=== PATIENT | female | born 1975 | race Caucasian/White ===

== ENCOUNTER 2016-10-17 21:33 | Emergency (ER) | payer BC ==
[~2016-10-17] VITALS: Ht 157.5 cm; Wt 89.1 kg
[2016-10-17 22:33] LABS: BASOPHIL COUNT 0.1 K/uL (0-0.1); EOSINOPHIL (%) 0.7 % (0-5); EOSINOPHIL COUNT 0.1 K/uL (0-0.3); HEMATOCRIT 40.4 % (36.0-46.0); IMMATURE GRANULOCYTE (%) 0.7 % (0.0-0.7); IMMATURE GRANULOCYTE COUNT 0.1 K/uL; LYMPHOCYTE COUNT 2.2 K/uL (1.0-2.8); MCH 30.3 PG (29.0-34.0); MCHC 33.9 G/DL (30.0-36.0); MCV 89.4 FL (83-99); MONOCYTE (%) 4.9 % (3-12); MONOCYTE COUNT 0.6 K/uL (0-0.8); PLATELET COUNT 269 K/uL (156-360); RBC DIS.WIDTH-CV 12.3 % (11.8-14.6); RBC DIS.WIDTH-SD 39.9 % (39-53); RED BLOOD COUNT 4.52 M/uL (3.80-5.20); WHITE BLOOD COUNT 11.9 K/uL (4.1-10.2)
[2016-10-17 22:38] LABS: INTER. NORMALIZED RATIO 1.1; PROTHROMBIN TIME 11.7 SEC (10.2-12.9)
[2016-10-17 22:41] LABS: PTT 32.2 SEC (25-37)
[2016-10-17 22:45] LABS: CHLORIDE 107 mEq/L (99-109); SODIUM 141 mEq/L (136-147)
[2016-10-17 22:47] LABS: GLUCOSE 94 mg/dL (70-99)
[2016-10-17 22:48] LABS: ANION GAP 9 MEQ/L (2-14)
[2016-10-17 22:49] LABS: TOTAL BILIRUBIN 0.2 mg/dL (0.0-1.0)
[2016-10-17 22:50] LABS: ALKALINE PHOSPHATASE 96 IU/L (3-129)
[2016-10-17 22:51] LABS: GFR ESTIMATE (CALCULATED) > 59 mL/min/
[2016-10-17 22:52] LABS: UREA NITROGEN (BUN) 19 mg/dL (9-23)
[2016-10-17 22:54] LABS: LIPASE 24 U/L (1.0-51.0)
[2016-10-17 23:01] LABS: INTERNAL CONTROL VALID? YES
[2016-10-18 00:37] VITALS: BP 122/79
== END 2016-10-18 00:37 | disposition home or self-care (01) ==
LOC: EME 21:33
PROVIDERS: Emergency Medicine
DX: S30.1XXA Contusion of abdominal wall, initial encounter (principal); S36.32XA Contusion of stomach, initial encounter; W55.12XA Struck by horse, initial encounter; Z88.1 Allergy status to other antibiotic agents; Z88.2 Allergy status to sulfonamides
CPT/HCPCS: 74177; 80053; 83605; 83690; 84703; 85025; 85610; 85730; 86900; 86901; 99281; 99284; J1885; J7040